=== PATIENT | female | born 1965 | race Caucasian/White ===

== ENCOUNTER → 2024-03-11 | Outpatient (CLI) | payer BC ==
--- NOTE | 2024-03-20 22:08 | MR ---
EXAMINATION TYPE: MR knee RT wo con DATE OF EXAM: 03/11/2024 COMPARISON: NONE HISTORY: right knee pain for 2-3 months, eval MMT vs Medial DJD TECHNIQUE: Multiplanar, multisequence images of the knee is performed without IV contrast. FINDINGS: MEDIAL MENISCUS: Truncation of posterior horn with abnormal signal extending to inferior articular gayle rface. Abnormal signal central body extends to articular surface sagittal image 7. LATERAL MENISCUS: Anterior and posterior horns are intact without tear. CRUCIATE LIGAMENTS: The anterior and posterior cruciate ligaments are intact and unremarkable. COLLATERAL LIGAMENTS: The medial collateral ligament and lateral collateral ligament complex are inta ct and unremarkable. EXTENSOR MECHANISM: Visualized quadriceps and patellar tendons are intact. EFFUSION: No significant suprapatellar joint effusion. POPLITEAL CYST: No popliteal/gallardo cyst. TRICOMPARTMENT SPACES: Mild to moderate tricompartment joint space loss and mild spurring. 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 Cartila ginous loss medial tibiofemoral compartment. BONE MARROW SIGNAL: Heterogeneous increased T2 signal along the posterior patellar pole superiorly. H eterogeneous diminished T1 and increased T2 signal involving the medial tibial plateau centrally. OTHER: No additional significant abnormality is appreciated. IMPRESSION: 1. 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 2. Full-thickness tear involving central body and posterior horn of medial meniscus. [facility], , 03/20/2024 10:05 PM
== END | disposition home or self-care (01) ==
LOC: RADMRIMAIN 14:16
PROVIDERS: ATTEND Orthopaedic Surgery
DX: S83.241A Other tear of medial meniscus, current injury, right knee, initial encounter (principal); M17.11 Unilateral primary osteoarthritis, right knee